=== PATIENT | male | born 1990 | race African-American/Black ===

== ENCOUNTER 2020-04-07 06:52 | Emergency (ER) | payer OTHER ==
[2020-04-07 06:55] VITALS: BP 131/78; PULSE 84; TEMP 98.6; BMI 21.5
[2020-04-07] MEDS ORDERED: HYOSCYAMINE SULFATE 0.125 MG *ODT PO ONE (07:30)
[2020-04-07] MEDS ORDERED: MAG HYDROX/AL HYDROX/SIMETH 30 ML UNIT-DOSE CUP PO ONE (07:30)
[2020-04-07] MEDS ORDERED: LIDOCAINE VISCOUS 2% ORAL/TOP 20 ML UNIT-DOSE CUP MM ONE (07:30)
[2020-04-07] MEDS ORDERED: ONDANSETRON *ODT* 4 MG TABLET SL ONE (07:30)
[2020-04-07] MEDS ORDERED: ONDANSETRON 4 MG/2 ML VIAL IVPUSH ONE (07:40)
[2020-04-07] MEDS ORDERED: FAMOTIDINE 20 MG/50 ML IVPB 20 MG in PREMIX 50 IVPB ONE (07:40)
[2020-04-07] MEDS ORDERED: SODIUM CHLORIDE 1,000 ML IV STA (07:40)
[2020-04-07] MEDS ORDERED: FAMOTIDINE 20 MG/50 ML IVPB 20 MG/50 ML MG IVPB ONE (07:42)
== END 2020-04-07 09:19 | disposition home or self-care (01) ==
LOC: JER 06:52
PROC: 3E033GC Introduction of Other Therapeutic Substance into Peripheral Vein, Percutaneous Approach (ICD-10-PCS; principal; 2020-04-07)
PROC: 3E033GC Introduction of Other Therapeutic Substance into Peripheral Vein, Percutaneous Approach (ICD-10-PCS; 2020-04-07)
PROC: 3E0337Z Introduction of Electrolytic and Water Balance Substance into Peripheral Vein, Percutaneous Approach (ICD-10-PCS; 2020-04-07)
DX: R11.2 Nausea with vomiting, unspecified (principal)
CPT/HCPCS: 99284-25

== ENCOUNTER 2021-11-13 11:02 | Emergency (ER) | payer OTHER ==
[2021-11-13 11:23] VITALS: BP 110/64; PULSE 73; TEMP 98.4; BMI 24.4
[2021-11-13] MEDS ORDERED: ONDANSETRON 4 MG/2 ML VIAL IVPUSH ONE (12:15)
[2021-11-13] MEDS ORDERED: ACETAMINOPHEN 1000 MG/100 ML BAG IVPB ONE (12:15)
[2021-11-13] MEDS ORDERED: SODIUM CHLORIDE 1,000 ML IV STA (12:15)
[2021-11-13] MEDS ORDERED: MAG HYDROX/AL HYDROX/SIMETH 30 ML UNIT-DOSE CUP PO ONE (12:26)
[2021-11-13] MEDS ORDERED: ACETAMINOPHEN INJECTION 100 ML IVPB ONE (12:33)
[2021-11-13] MEDS ORDERED: ONDANSETRON 4 MG/2 ML VIAL ONE (12:33)
== END 2021-11-13 15:35 | disposition left against medical advice (07) ==
LOC: JER 11:02
PROC: 3E0333Z Introduction of Anti-inflammatory into Peripheral Vein, Percutaneous Approach (ICD-10-PCS; principal; 2021-11-13)
PROC: 3E033GC Introduction of Other Therapeutic Substance into Peripheral Vein, Percutaneous Approach (ICD-10-PCS; 2021-11-13)
PROC: 3E0337Z Introduction of Electrolytic and Water Balance Substance into Peripheral Vein, Percutaneous Approach (ICD-10-PCS; 2021-11-13)
DX: R11.2 Nausea with vomiting, unspecified (principal)
CPT/HCPCS: 74176-TC; 99284-25

== ENCOUNTER 2022-01-23 08:50 | Emergency (ER) | payer OTHER ==
[2022-01-23 09:01] VITALS: BP 113/74; PULSE 87; RESP 18; TEMP 98.3; BMI 23.6
[2022-01-23] MEDS ORDERED: FAMOTIDINE 10 MG TABLET PO ONE (09:12)
[2022-01-23] MEDS ORDERED: ONDANSETRON *ODT* 4 MG TABLET SL ONE ×2 (09:12→09:16)
[2022-01-23] MEDS ORDERED: MAG HYDROX/AL HYDROX/SIMETH -MYLANTA- ORAL SUSPENSION PO ONE ×2 (09:12→09:16)
[2022-01-23] MEDS ORDERED: FAMOTIDINE 20 MG TABLET PO ONE (09:16)
[2022-01-23] MEDS ORDERED: ACETAMINOPHEN 500 MG TABLET (FP) PO ONE (09:21)
[2022-01-23] MEDS ORDERED: ONDANSETRON *ODT* 4 MG TABLET ONE (09:24)
[2022-01-23] MEDS ORDERED: ACETAMINOPHEN 325 MG TABLET (FP) ONE (09:36)
[2022-01-23] MEDS ORDERED: FAMOTIDINE 20 MG TABLET ONE (09:36)
[2022-01-23] MEDS ORDERED: MAG HYDROX/AL HYDROX/SIMETH 30 ML UNIT-DOSE CUP ONE (09:36)
== END 2022-01-23 10:39 | disposition home or self-care (01) ==
LOC: JER 08:50
DX: R11.2 Nausea with vomiting, unspecified (principal)
CPT/HCPCS: 99283-25; Q0162

== ENCOUNTER 2023-08-26 07:43 | Emergency (ER) | payer SELFPAY ==
[2023-08-26 08:05] VITALS: RESP 16; BMI 25.1
[2023-08-26] MEDS ORDERED: FAMOTIDINE 20 MG/50 ML IVPB 20 MG/50 ML MG IVPB ONE (08:25)
[2023-08-26] MEDS ORDERED: ONDANSETRON 4 MG/2 ML VIAL ONE (08:25)
[2023-08-26] MEDS ORDERED: MAG HYDROX/AL HYDROX/SIMETH 30 ML UNIT-DOSE CUP ONE (08:25)
[2023-08-26] MEDS ORDERED: ACETAMINOPHEN INJECTION 100 ML IVPB ONE (08:25)
[2023-08-26] MEDS: ONDANSETRON 4 MG/2 ML VIAL IVPUSH ONE (08:35)
[2023-08-26] MEDS: MAG HYDROX/AL HYDROX/SIMETH 30 ML UNIT-DOSE CUP PO ONE (08:37)
[2023-08-26 08:38] LABS: HEMOGLOBIN 12.2 GM/dL (11.7-16.9); RBC 5.05 M/mm3 (4.00-5.60)
[2023-08-26] MEDS: SODIUM CHLORIDE 0.9% 500 ML INFUS.BAG IV ONE (08:38)
[2023-08-26 08:39] LABS: BASO % 0.9 % (0-2.0); EOS % 1.5 % (0-4.5); HEMATOCRIT 39.2 % (35.4-49); LYMPH % 18.1 % (8-40); MCH 24.2 pg (25.7-33.7); MCHC 31.2 g/dl (32.0-35.9); MEAN CELL VOLUME 77.7 fl (80-96); MEAN PLT VOLUME 7.8 fl (7.5-11.1); MONO % 7.1 % (3.8-10.2); NEUT % 72.4 % (42.8-82.8); PLATELET COUNT 198 10^3/uL (134-434); RDW 13.6 % (11.9-15.9)
[2023-08-26] MEDS: ACETAMINOPHEN 1000 MG/100 ML BAG IVPB ONE (08:39)
[2023-08-26] MEDS: FAMOTIDINE 10 MG TABLET PO ONE (08:40)
[2023-08-26] MEDS: ONDANSETRON *ODT* 4 MG TABLET SL ONE (08:40)
[2023-08-26] MEDS: FAMOTIDINE 20 MG/50 ML IVPB 20 MG/50 ML MG IVPB ONE (08:54)
[2023-08-26 09:22] LABS: POTASSIUM 3.7 mmol/L (3.5-5.1)
[2023-08-26 09:24] LABS: ALBUMIN 3.4 g/dl (3.4-5.0); CALCIUM 8.6 mg/dL (8.5-10.1)
[2023-08-26 09:25] LABS: BLOOD UREA NITROGEN 12.8 mg/dL (7-18)
[2023-08-26 09:27] LABS: CREATININE 1.1 mg/dL (0.55-1.3)
[2023-08-26 09:29] LABS: TOT PROT 6.6 g/dl (6.4-8.2)
[2023-08-26 09:31] LABS: BILIRUBIN,TOTAL 0.4 mg/dL (0.2-1)
[2023-08-26 10:16] VITALS: BP 128/72; PULSE 61; TEMP 98
== END 2023-08-26 10:45 | disposition home or self-care (01) ==
LOC: JER 07:43
PROC: 3E033GC Introduction of Other Therapeutic Substance into Peripheral Vein, Percutaneous Approach (ICD-10-PCS; principal; 2023-08-26)
PROC: 3E033GC Introduction of Other Therapeutic Substance into Peripheral Vein, Percutaneous Approach (ICD-10-PCS; 2023-08-26)
PROC: 3E033NZ Introduction of Analgesics, Hypnotics, Sedatives into Peripheral Vein, Percutaneous Approach (ICD-10-PCS; 2023-08-26)
DX: R11.0 Nausea (principal); K21.9 Gastro-esophageal reflux disease without esophagitis; F10.10 Alcohol abuse, uncomplicated
CPT/HCPCS: 36415; 80053; 83690; 85025; 99284-25; J0131